=== PATIENT | male | born 1980 | race Caucasian/White ===

== ENCOUNTER 2022-03-16 13:38 | Emergency (ER) | payer SELFPAY ==
--- OUTSIDE RECORDS SUMMARY | 2022-03-16 13:41 | XMS REPORT | Continuity of Care Document ---
:1980 Author Organization [facility] Address [address] [place] [address] Care Team Providers Name Role Phone Burton Maurice MD Attending Clinician BURTON MAURICE Attending Clinician Unavailable Payers Payer Name Policy Type Policy Number Effective Date Expiration Date S ource Problems This patient has no known problems. Allergies, Adverse Reactions, Alerts Allergy Allergy Status Severity Reaction(s) Onset Inactive Treating Comm ents Source Name Type Date Date Clinician Sulfa Propensi Active Rash Univers (Sulfona ty to 2-09 ity of mide adverse 00:00: [place] Antibiot reaction 00 Medica l ics) s Branch SULFA Drug Active Rash Univers (SULFONA Class 2-09 ity of MIDE 00:00: [place] ANTIBIOT 00 Medical ICS) Branch NO KNOWN Drug Active Univers ALLERGIE Class ity of S [facility] Social History Social Habit Start Date Stop Date Quantity Comments Source [facility] to SARS-CoV-2 Not sure [facility] [place] (event) Medical Branch Smoking Status Start Date Stop Date Source Unknown if ever smoked Universit y [facility] Medications Ordered Filled Start Stop Current Ordering Indication Dosage Frequency Signature Comments Components Source Medication Medication Date Date Medication? Clinician (SIG) Name Name ALPRAZolam Yes [id number] .5mg Take 1 Univers (XANAX) 0.5 2-09 tablet by ity of mg tablet 00:00: mouth 3 (three) Medical times Branch daily. ALPRAZolam Yes [id number] .5mg Take 1 Univers (XANAX) 0.5 2-09 tablet by ity of mg tablet 00:00: mouth 3 00 (three) Medical times Branch daily. Vital Signs Vital Name Observation Time Observation Value Comments Source Systolic blood 2020-09-17 12:35:00 146 mm[Hg] Univer sity of pressure [place] [facility] Diastolic blood 2020-09-17 12:35:00 91 mm[Hg] Unive rsity of pressure [facility] Heart rate 2020-09-17 12:35:00 90 /min Universi ty [facility] [place] [facility] [place] Respiratory rate 2020-09-17 12:35:00 18 /min Univ ersity of [facility] Oxygen saturation in 2020-09-17 12:35:00 97 /min University of Arterial blood by [facility] Pulse oximetry Branch Body temperature 2020-09-17 04:04:00 36.67 Jania Univ ersity of [facility] Body weight 2020-09-17 04:04:00 88.451 kg Universi ty of [facility] Systolic blood 2020-09-17 02:21:00 160 mm[Hg] Univer sity of pressure [place] [facility] [place] Diastolic blood 2020-09-17 02:21:00 87 mm[Hg] Unive rsity of [facility] Heart rate 2020-09-17 02:21:00 98 /min Universi ty [facility] Body temperature 2020-09-17 02:21:00 36.67 Jania Univ ersity of [facility] Respiratory rate 2020-09-17 02:21:00 18 /min Univ ers[facility] [place] [facility] [place] Body weight 2020-09-17 02:21:00 88.451 kg Universi ty [facility] Oxygen saturation in 2020-09-17 02:21:00 99 /min University of Arterial blood by [facility] Pulse oximetry [place] Procedures Procedure Date / Time Performing Clinician Source Performed ADC / LCC - DRUG SCREEN 2020-09-17 04:28:00 Burton Maurice [facility] TRIAGE [facility] CREATINE KINASE 2020-09-17 04:27:00 Burton Maurice [place] [facility] THYROID STIMULATING 2020-09-17 04:27:00 Burton Maurice [facility] HORMONE [facility] HEPATIC FUNCTION PANEL 2020-09-17 04:27:00 Burton Maurice [facility] ([id number]) (ALB,T.PRO,BILI Medical Branch T,BU/BC,ALT,AST,ALK PHOS) BASIC METABOLIC PANEL 2020-09-17 04:27:00 Burton Maurice [facility] (NA, K, CL, CO2, Medical Branch GLUCOSE, BUN, CREATININE, CA) SALICYLATE 2020-09-17 04:27:00 Burton Maurice [facility] CBC WITH DIFF 2020-09-17 04:27:00 Burton Maurice [facility] COVID-19 (ID NOW RAPID 2020-09-17 04:27:[address] [facility] TESTING) Medical Branch NOTICE OF PRIVACY 2020-09-17 02:09:44 Doctor Unassigned, No Univ [facility] PRACTICES Name [facility] Branch CONSENT/REFUSAL FOR 2020-09-17 02:09:29 Doctor Unassigned, No [facility] DIAGNOSIS AND TREATMENT Name [facility] Encounters Start End Encounter Admission Attending Care Care Encounter Source Date/Time Date/Time Type Type Clinicians Facility Department ID 2020-09-16 2020-09-17 Emergency [facility] [id number] Univers 22:03:00 07:43:00 Burton Garcia [id number] [facility] [id number] [facility] [id number] [address] 2020-09-16 2020-09-16 [facility] [id number] Univers 22:03:00 22:03:00 BURTON [facility] 2020-09-16 2020-09-16 Emergency [facility] [id number] Univers 20:23:00 21:21:00 Burton Garcia [id number] [facility] [id number] [facility] [id number] [address] 2020-09-16 2020-09-16 Emergency X [facility] ERT [id number] Univers 20:07:00 20:07:00 [facility] Results Test Description Test Time Test Comments Results Result Comments Source THYROID STIMULATING HORMONE 2020-09-17 06:27:00 Test Item Value Reference Range Interpretation Comme nts TSH (test code = 1900855080) See_Comment [Automated message] The system which generated this result transmitted ref erence range: 0.45 - 4.70 mIU/L. T he reference range was not used to interpret this result as cherise l/abnormal. Lab Interpretation (test code = Normal 18198-3) [facility] Test Item Value Reference Range Interpretation Comments SALICYLATE (test code <10 mg/L = 7647639493) SUNIL (test code = SUNIL) Therapeutic Range: ? Analgesic and Antipyretic Use ? 20-100 mg/L ? ? Anti-Inflammatory Use ? 100-250 mg/L Toxic Range: ? Greater than 300 mg/L [facility]10 06:04:00 Test Item Value Reference Range Interpretation Comments ACETAMINOP (test code = <10.0 10-30 L 3508563047) SUNIL (test code = SUNIL) Toxic: Greater than 200 ug/mL @ 4 hour post ingestion or greater than 50 ug/mL @ 12 hour post ingestion Lab Interpretation (test Abnormal code = 36412-6) [facility] (NA, K, CL, CO2, GLUCOSE, BUN, CREATININE, CA)2020-09-17 05:58:00 Test Item Value Reference Range Interpretation Comments NA (test code = 140 mmol/L 135-145 7068151354) K (test code = 3.7 mmol/L 3.5-5 0164012885) CL (test code = 105 mmol/L 98-108 8711618942) CO2 TOTAL (test code = 25 mmol/L 23-31 0303815590) AGAP (test code = 2-16 0538052609) BUN (test code = 18 mg/dL 7-23 9815933659) GLUCOSE (test code = 97 mg/dL 70-110 9826675158) CREATININE (test code 0.99 mg/dL 0.6-1.25 = 1976716515) CALCIUM (test code = 8.8 mg/dL 8.6-10.6 1557743310) eGFR Calculation mL/min/1.73m2 (Non-) (test code = 6457932726) eGFR Calculation mL/min/1.73m2 () (test code = 3177499936) SUNIL (test code = SUNIL) Association of Glomerular Filtration Rate (GFR) and Staging of Kidney Disease* + -+ + ---+| GFR (mL/min/1.73 m2) ?| With Kidney Damage ?| ?Without Kidney Damage+ -------+ ------+ ---------+| ?>90 ?| ?Stage one ?| ? Normal ?+ --+ -+ ----+| ?60-89 ?| ?Stage two ?| ? Decreased GFR ? + -+ + ---+| ?30-59 ?| ?Stage three ?| ? Stage three ? + -+ + ---+| ?15-29 ?| ?Stage four ? | ? Stage four ?+ --+ -+ ----+| ?<15 (or dialysis) ? ?| ?Stage five ? | ? Stage five ?+ --+ -+ ----+ *Each stage assumes the associated GFR level has been in effect for at least three months. ?Stages 1 to 5, with or without kidney disease, indicate chronic kidney disease. Notes: Determination of stages one and two (with eGFR >59mL/min/1.73 m2) requires estimation of kidney damage for at least three months as defined by structural or functional abnormalities of the kidney, manifested by either:Pathological abnormalities or Markers of kidney damage (including abnormalities in the composition of the blood or urine or abnormalities in imaging tests). [facility] (ALB, T.PRO, BILI T, BU/BC, ALT, AST, ALK PHOS)2020-09-17 05:58:00 Test Item Value Reference Range Interpretation Comments TOTAL BILI (test code = 2620087779) 0.4 mg/dL 0.1-1.1 BILI UNCON (test code = 3525625755) 0.4 mg/dL 0.1-1.1 BILI CONJ (test code = 9010394005) 0.0 mg/dL 0-0.3 T PROTEIN (test code = 5849518100) 6.6 g/dL 6.3-8.2 ALBUMIN (test code = 7840921427) 3.9 g/dL 3.5-5 ALK PHOS (test code = 5540333158) 76 U/L 34-122 ALTv (test code = 1742-6) 22 U/L 5-50 AST(SGOT) (test code = 5458280868) 21 U/L 13-40 Lab Interpretation (test code = Normal 76264-7) [facility] [id number] 05:58:00 Test Item Value Reference Range Interpretation Comments CK (test code = 8942897133) 420 U/L 33-194 H Lab Interpretation (test code = Abnormal 45796-1) [facility] (ID NOW RAPID TESTING)2020-09-17 04:56:00 Test Item Value Reference Range Interpretation Comments SARS-CoV-2 Rapid ID NOW Not Detected Not Detected (test code = 47676-4) SUNIL (test code = SUNIL) ID NOW COVID-19 Assay is an isothermal nucleic acid amplification test intended for the qualitative detection of nucleic acid from SARS-CoV-2 viral RNA in nasopharyngeal (MEDICAL LAB ASSISTANT) specimens. It is used under Emergency Use Authorization (EUA) by FDA. The limit of detection (LOD) of the assay is 125 Genome Equivalents/mL. A positive result is indicative of the presence of SARS-CoV-2 RNA. ?Clinical correlation with patient history and other diagnostic information is necessary to determine patient infection status. A negative (Not Detected) result does not preclude SARS-CoV-2 infection. In patients with clinical symptoms and other tests that are consistent with SARS-CoV-2 infection, negative results should be treated as presumptive negative and a new specimen should be tested with alternative PCR molecular test. Invalid: Please collect a new specimen for repeat patient testing if clinically indicated. Lab Interpretation Normal (test code = 34396-3) [facility] / [facility] - DRUG SCREEN [id number] 04:52:00 Test Item Value Reference Range Interpretation Comments BENZO U (test code = Negative Negative 3876822131) SKIP U (test code = Negative Negative 7139947737) AMPHET (test code = Presumptive Positive Negative A 5787776919) THC (test code = Negative Negative 4979252966) METHADONE (test code = Negative Negative 0302744437) Meth U (test code = Presumptive Positive Negative A 7317862510) OPIATES (test code = Negative Negative 1655294622) Cocaine Metabolite (test Negative Negative code = 9970887491) PROPOXY (test code = Negative Negative 1786571474) Tric U (test code = Negative Negative 2406343046) PCP (test code = Negative Negative 5105863203) OXYCOD (test code = Negative Negative 5544967399) SUNIL (test code = SUNIL) Urine Drug Cutoff Ranges Benzodiazepines: ? ? 150 ng/mLBarbiturates: ?200 ng/mLAmphetamine: ? 500 ng/mLCannabinoids: ?50 ?ng/mLMethadone: ? 200 ng/mLMethamphetamine: ? ? 500 ng/mL Opiates: ? 100 ng/mL or 2000 ng/mLCocaine: ? 150 ng/mLPropoxyphene: ?300 ng/mLTricyclics: ?300 ng/mLOxycodone: ? 100 ng/mLPCP: ? 25 ?ng/mL The results are to be used only for medical (i.e., treatment) purposes. Unconfirmed screening results must not be used for non-medical purposes (e.g., employment testing, legal testing). Lab Interpretation (test Abnormal code = 06056-4) [facility] with [id number] 04:38:00 Test Item Value Reference Range Interpretation Comments WBC (test code = See_Comment H [Automated 1890-2) message] The sy stem which generated this result transmitted reference range : 4.20 - 10.70 10*3/?L. The reference range was not used to interpret this result as normal/abnormal . RBC (test code = See_Comment L [Automated 019-8) message] The sy stem which generated this result transmitted reference range : 4.26 - 5.52 10*6/?L. The reference range was not used to interpret this result as normal/abnormal . HGB (test code = 12.4 g/dL 12.2-16.4 718-7) HCT (test code = 36.3 % 38.4-49.3 L 4544-3) MCV (test code = 89.2 fL 81.7-95.6 787-2) MCH (test code = 30.5 pg 26.1-32.7 785-6) MCHC (test code = 34.2 g/dL 31.2-35 786-4) RDW-SD (test code = 38.1 fL 38.5-51.6 L 94310-7) RDW-CV (test code = 11.9 % 12.1-15.4 L 788-0) PLT (test code = See_Comment [Automated 777-3) message] The sy stem which generated this result transmitted reference range : 150 - 328 10*3/ ?L. The reference r eugene was not used to interpret this result as normal/abnormal . MPV (test code = 9.3 fL 9.8-13 L 47836-5) NRBC/100 WBC (test See_Comment [Automat ed code = 1994692015) message] The system which generated this result transmitted reference range : 0.0 - 10.0 /100 WBCs. The refer ence range was not u sed to interpret th is result as normal/abnormal . NRBC x10^3 (test code <0.01 See_Comment [Auto mated = 4761763982) message] The s ystem which generated this result transmitted reference range : 10*3/?L. The reference range was not used to interpret this result as normal/abnormal . GRAN MAT (NEUT) % 72.3 % (test code = 770-8) IMM GRAN % (test code 0.60 % = 6608024602) LYMPH % (test code = 14.8 % 736-9) MONO % (test code = 6.8 % 5905-5) EOS % (test code = 4.8 % 713-8) BASO % (test code = 0.7 % 706-2) GRAN MAT x10^3(ANC) 9.10 10*3/uL 1.99-6.95 H (test code = 6937019893) IMM GRAN x10^3 (test 0.07 10*3/uL 0-0.06 H code = 7798000665) LYMPH x10^3 (test code 1.86 10*3/uL 1.09-3.23 = 731-0) MONO x10^3 (test code 0.86 10*3/uL 0.36-1.02 = 742-7) EOS x10^3 (test code = 0.60 10*3/uL 0.06-0.53 H 711-2) BASO x10^3 (test code 0.09 10*3/uL 0.01-0.09 = 704-7) Lab Interpretation Abnormal (test code = 77675-3) [facility]"
[2022-03-16] MEDS ORDERED: DIAZEPAM 10 MG/2 ML INJ SYRINGE ONE (14:10)
[2022-03-16] MEDS ORDERED: LIDOCAINE 4% PATCH ONE (14:11)
--- NOTE | 2022-03-16 14:14 | RAD REPORT ---
EXAM DESCRIPTION: CT - Stone Protocol - 03/16/2022 2:00 pm CLINICAL HISTORY: Flank pain. right low back pain COMPARISON: No comparisons TECHNIQUE: Axial images were obtained without oral or IV contrast. Lack of contrast limits solid org an and vascular assessment. The uyqri-ho-ehhy spans the entirety of the system partially obscuring uppermost abdomen and lung bases. Coronal reformatted images were obtained and reviewed. All CT scans are performed using dose optimization technique as appropriate and may include automated exposure control or mA/KV adjustment according to patient size. FINDINGS: The lower lung greene are clear. Imaged portions of the liver and spleen show no suspicious findings on non-contrast imaging. The panc reas and adrenal glands are normal. No pathologic lymphadenopathy in the abdomen or pelvis. No urinary tract stones or obstructive uropathy. No bowel obstruction, free air, free fluid or abscess. Normal appendix noted. No significant bony abnormality. IMPRESSION: No urinary tract stones or obstructive uropathy.
[2022-03-16 14:21] LABS: Absolute Lymphocytes (CBC) 1.3 K/uL (0.7-4.9); Hematocrit 44.4 % (39.6-49.0); Lymphocytes % 10.6 % (15.3-44.8); MCV 88.1 fL (80-100); RBC Red Blood Cell Count 5.04 M/uL (4.33-5.43)
[2022-03-16 14:40] LABS: Albumin 4.5 g/dL (3.4-5.0); Bilirubin Total 0.4 mg/dL (0.2-1.0); Potassium 4.1 mmol/L (3.5-5.1); Protein, Total 8.5 g/dL (6.4-8.2)
[2022-03-16 15:13] LABS: Urine Blood Negative (Negative); Urine Glucose Negative (Negative); Urine Protein 1+ (Negative); Urine Specific Gravity >=1.030 (1.005-1.030); Urine pH 5.5 (5.0-7.0)
[2022-03-16 15:40] LABS: Urine Bacteria <20 /HPF (<20); Urine Mucus 3+ /HPF (None Seen); Urine RBC <5 /HPF (None Seen)
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
[2022-03-16 18:09] VITALS: TEMP 97; O2SAT 100
[2022-03-16 18:17] VITALS: BP 136/96
== END 2022-03-16 17:04 | disposition home or self-care (01) ==
LOC: ER 13:38
DX: M54.50 Low back pain, unspecified (principal); F31.9 Bipolar disorder, unspecified; Z88.0 Allergy status to penicillin
CPT/HCPCS: 36415; 74176; 76377; 80053; 81003; 81015; 83690; 85025; 96374; 99284; J2001; J3360

== ENCOUNTER 2024-07-30 15:47 | Emergency (ER) | payer OTHER ==
--- OUTSIDE RECORDS SUMMARY | 2024-07-30 15:49 | XMS REPORT | Continuity of Care Document ---
Author Name Unknown Address [address] [facility] [facility] [address] [place] [address] [facility] Address [address] [facility] [address] [place] [address] Care Team Providers Care Strip Roller Name Role Phone Mary Pond Primary Care Physician Allergies, Adverse Reactions, Alerts Allergy Name Allergy Type Status Severity Reaction(s) Onset Date Inactive Date Treating Clinician Comments Source Penicill ins - CLASS Propensi ty to adverse reaction to drug Active 9-05 00:00: 00 Yon Medrano Sulfa (Sulfona mide Antibiot ics) Propensi ty to adverse reaction to drug Active 6-19 00:00: 00 Yon Medrano Medications Ordered Medication Name Filled Medication Name Start Date Stop Date Current Medication? Ordering Clinician Indication Dosage Frequency Signature (SIG) Comments Components Source TADALAFIL 20MG TABLETS 3-11 00:00: 00 Yes Yon Medrano CLONAZEPAM 1 MG 2-14 00:00: 00 Yes Yon Medrano QUETIAPINE FUMARATE 200 MG 2022-08 1-29 00:00: 00 Yes 200 Yon Medrano QUETIAPINE FUMARATE 200 MG 2022-08 0-25 00:00: 00 Yes 200 Yon Medrano LAMOTRIGINE 100MG TABLETS 2022-08 0-25 00:00: 00 Yes Yon Medrano VENLAFAXINE ER 150MG CAPSULES 2022-08 0-25 00:00: 00 Yes Yon Medrano CLONAZEPAM 1 MG 2022-08 0-25 00:00: 00 Yes 1 Yon Medrano TAKE 10 ML EVERY 6 HRS NEEDED. 9-12 00:00: 00 12-07 00:00 :00 No [id number] Yon Medrano VENLAFAXINE HCL ER 75 MG 0 8-28 00:00: 00 Yes 75 Yon Medrano TADALAFIL 20MG TABLETS 0 8-02 00:00: 00 Yes Yon Medrano LAMOTRIGINE 25MG TABLETS 0 7-31 00:00: 00 Yes Yon Medrano MIRTAZAPINE 7.5 MG 0 7-31 00:00: 00 Yes 75 Yon Medrano CLONAZEPAM 1 MG 0 7-31 00:00: 00 Yes 1 Yon Medrano VENLAFAXINE HCL ER 75 MG 0 7-27 00:00: 00 Yes 75 Yon Medrano TADALAFIL 20MG TABLETS 0 7-04 00:00: 00 Yes Yon Medrano TAMSULOSIN HCL 0.4 MG CAPSULE - 00:00: 00 Yes Yon Medrano TAKE 1 CAPSULE BY MOUTH ONCE DAILY 0 - 00:00: 00 12-07 00:00 :00 No 4 Yon Medrano TAKE 1 TABLET TWICE DAILY. - 00:00: 00 12-07 00:00 :00 No [id number] Yon Medrano TAKE 1 TABLET BY MOUTH AT BEDTIME - 00:00: 00 Yes Yon Medrano VENLAFAXINE ER 75MG CAPSULES 0 5-02 00:00: 00 Yes Yon Medrano LAMOTRIGINE 100MG TABLETS 0 5- 00:00: 00 Yes Yon Medrano VENLAFAXINE ER 150MG CAPSULES 0 5-02 00:00: 00 Yes Yon Medrano CLONAZEPAM 1 MG 0 5-02 00:00: 00 Yes Yon Medrano MIRTAZAPINE 7.5MG TABLETS 5-02 00:00: 00 12-07 00:00 :00 No Yon Medrano TADALAFIL 20MG TABLETS 4-14 00:00: 00 Yes Yon Medrano TAKE 1/2 TO 1 (ONE-HALF TO ONE) TABLET BY MOUTH ONCE DAILY NEEDED 3-07 00:00: 00 12-07 00:00 :00 No Yon Medrano QUETIAPINE FUMARATE 200 MG 3-03 00:00: 00 Yes Yon Medrano TAKE 1 CAPSULE BY MOUTH EVERY DAY WITH FOOD 2-02 00:00: 00 Yes Yon Medrano QUETIAPINE FUMARATE 200 MG 2-02 00:00: 00 Yes 200 Yon Medrano TAKE 1 TABLET BY MOUTH THREE TIMES A DAY 0 2-02 00:00: 00 Yes Yon Medrano TAKE 1 TABLET BY MOUTH TWICE A DAY 2021-08- 00:00: 00 Yes Yon Medrano mirtazapine 45 mg tablet 2021-08 00:00: 00 Yes 45 Yon Medrano TAKE 1 TABLET BY MOUTH TWICE A DAY NEEDED 2021-08 00:00: 00 Yes Yon Medrano TAKE 1/2 TO 1 (ONE-HALF TO ONE) TABLET BY MOUTH ONCE DAILY NEEDED 2021-08 00:00: 00 Yes Yon Medrano venlafaxine ER 150 mg capsule,ext ended release 24 hr 2021-08 0- 00:00: 00 Yes 150 Yon Medrano lamotrigine 25 mg tablet 2021-08 0- 00:00: 00 Yes 25 Yon Medrano TAKE 1 TABLET (3 MG) BY MOUTH DAILY BEFORE BEDTIME 2021-08 0- 00:00: 00 Yes Yon Medrano venlafaxine ER 75 mg capsule,ext ended release 24 hr 2021-08 0-26 00:00: 00 Yes 75 Yon Medrano TAKE 1 TABLET BY MOUTH THREE TIMES A DAY 2021-08 0-26 00:00: 00 Yes Yon Medrano quetiapine 100 mg tablet 2021-08 0-13 00:00: 00 Yes 100 Yon Medrano TAKE 1 CAPSULE BY MOUTH EVERY DAY WITH FOOD -28 00:00: 00 Yes Yon Medrano VENLAFAXINE HCL ER 37.5 MG 9-23 00:00: 00 Yes 375 Yon Medrano VENLAFAXINE 37.5MGER 7-15 00:00: 00 Yes [id number] Yon Medrano TAKE 1 CAPSULE BY MOUTH EVERY DAY WITH FOOD 7- 00:00: 00 Yes Yon Medrano VENLAFAXINE 150MG ER 6-30 00:00: 00 Yes [id number] Yon Medrano TAKE 1 CAPSULE BY MOUTH EVERY DAY WITH FOOD 2022-0 6- 00:00: 00 Yes Yon Medrano TAKE 1 TABLET BY MOUTH THREE TIMES A DAY 2022-0 5-31 00:00: 00 Yes Yon Medrano Dose Unknown 2022-0 4-27 00:00: 00 Yes Yon Medrano Dose Unknown 2022-0 4-27 00:00: 00 Yes Yon Medrano TAKE 1 CAPSULE BY MOUTH EVERY DAY WITH FOOD 2022-0 4-25 00:00: 00 Yes Yon Medrano TAKE 1 TABLET BY MOUTH EVERY DAY 2022-0 4-25 00:00: 00 Yes Yon Medrano ARIPIPRAZOL E 5MG 2-0 4-25 00:00: 00 Yes 5000 Yon Medrano TAKE 1 CAPSULE BY MOUTH EVERY DAY WITH FOOD 2-0 4-25 00:00: 00 Yes Yon Medrano Dose Unknown 2022-0 4-21 00:00: 00 Yes Yon Medrano Dose Unknown 2022-0 4-21 00:00: 00 Yes Yon Medrano Dose Unknown 2022-0 4-18 00:00: 00 Yes Yon Medrano Dose Unknown 2022-0 4-18 00:00: 00 Yes Yon Medrano quetiapine 300 mg tablet 2-0 4-14 00:00: 00 Yes 1mg Yon Medrano mirtazapine 45 mg tablet 2-0 4-14 00:00: 00 Yes 1mg Yon Medrano Dose Unknown 2022-0 4-14 00:00: 00 Yes Yon Medrano Dose Unknown 2022-0 4-14 00:00: 00 Yes Yon Medrano Dose Unknown 2021-0 9-04 00:00: 00 Yes Yon Medrano Dose Unknown 2021-0 9-04 00:00: 00 Yes Yon F Mitchell Dose Unknown 2021-0 9-04 00:00: 00 Yes Yon F Mitchell Dose Unknown 2021-0 9-04 00:00: 00 Yes Yon Medrano Dose Unknown 2021-0 9-04 00:00: 00 Yes Yon Medrano lamotrigine 150 mg tablet 2021-0 6-19 00:00: 00 Yes 1mg Yon Medrano Dose Unknown 2021-0 6-19 00:00: 00 Yes Yon Medrnao Dose Unknown 01-24 00:00: 00 Yes Yon Medrano Dose Unknown 01-24 00:00: 00 Yes Yon Medrano lamotrigine 100 mg tablet 01-24 00:00: 00 Yes 1mg Yon Medrano hydroxyzine HCl 50 mg tablet 01-24 00:00: 00 Yes 1mg Yon Medrano Vraylar 1.5 mg capsule 01-24 00:00: 00 Yes 1mg Yon Medrano doxepin 50 mg capsule 01-24 00:00: 00 Yes 1mg Yon Medrano Immunizations Ordered Immunization Name Filled Immunization Name Date Status Comments Source Moderna COVID-19 Vaccine Moderna COVID-19 Vaccine 2021-08-25 00:00:00 Completed Yon Medrano Moderna COVID-19 Vaccine Moderna COVID-19 Vaccine 2021-04-25 00:00:00 Completed Yon Medrano Moderna COVID-19 Vaccine Moderna COVID-19 Vaccine 2021-03-03 00:00:00 Completed Yon Medrano Vital Signs Vital Name Observation Time Observation Value Comments S ourjorge Weight Measured 2024-01-09 16:25:00 209.00 pounds Yon Medrano Height Measured 2024-01-09 16:25:00 71.85 inches Yon Medrano Body Temperature 2024-01-09 16:25:00 98.20 degrees Yon Medrano Heart Rate 2024-01-09 16:25:00 79.00 /min Samia en Theresa Medrano Respiratory Rate 2024-01-09 16:25:00 16.00 /min Yon Medrano BP Systolic 2024-01-09 16:25:00 148 mm[Hg] Step miriam Medrano BP Diastolic 2024-01-09 16:25:00 91 mm[Hg] Reguol phen Theresa Medrano BP Systolic 2023-04-20 10:02:00 Jeremy Medrano BP Diastolic 2023-04-20 10:02:00 Regulo phen Theresa Medrano Weight Measured 2023-04-20 10:02:00 Yon Medrano Height Measured 2023-04-20 10:02:00 Yon Medrano Body Temperature 2023-04-20 10:02:00 Yon F Mitchell Heart Rate 2023-04-20 10:02:00 Samia en F Mitchell Respiratory Rate 2023-04-20 10:02:00 Yon F Mitchell BP Systolic 2022-12-24 11:03:00 135 mm[Hg] Step hen F Mitchell BP Diastolic 2022-12-24 11:03:00 89 mm[Hg] Regulo phen F Mitchell Weight Measured 2022-12-24 11:03:00 240.60 pounds Yon F Mitchell Height Measured 2022-12-24 11:03:00 71.85 inches Yon F Mitchell Body Temperature 2022-12-24 11:03:00 98.70 degrees Yon F Mitchell Heart Rate 2022-12-24 11:03:00 96.00 /min Samia en F Mitchell Respiratory Rate 2022-12-24 11:03:00 Yon F Mitchell BP Systolic 2021-04-24 13:12:00 Step hen F Mitchell BP Diastolic 2021-04-24 13:12:00 Regulo phen F Mitchell Weight Measured 2021-04-24 13:12:00 239.20 pounds Yon F Mitchell Height Measured 2021-04-24 13:12:00 71.85 inches Yon F Mitchell Body Temperature 2021-04-24 13:12:00 Yon F Mitchell Heart Rate 2021-04-24 13:12:00 Samia en F Mitchell Respiratory Rate 2021-04-24 13:12:00 Yon F Mitchell BP Systolic 2021-04-11 14:29:00 144 mm[Hg] Step hen F Mitchell BP Diastolic 2021-04-11 14:29:00 82 mm[Hg] Regulo phen F Mitchell Weight Measured 2021-04-11 14:29:00 239.20 pounds Yon F Mitchell Height Measured 2021-04-11 14:29:00 71.85 inches Yon F Mitchell Body Temperature 2021-04-11 14:29:00 98.40 degrees Yon F Mitchell Heart Rate 2021-04-11 14:29:00 91.00 /min Samia en F Mitchell Respiratory Rate 2021-04-11 14:29:00 25.00 /min Yon F Mitchell BP Systolic 2021-01-24 11:26:00 131 mm[Hg] Step hen F Mitchell BP Diastolic 2021-01-24 11:26:00 96 mm[Hg] Regulo Medrano Weight Measured 2021-01-24 11:26:00 227.20 pounds Yon Medrano Height Measured 2021-01-24 11:26:00 71.85 inches Yon Medrano Body Temperature 2021-01-24 11:26:00 98.40 degrees Yon Medrano Heart Rate 2021-01-24 11:26:00 97.00 /min Samia Medrano Respiratory Rate 2021-01-24 11:26:00 Yon Medrano Encounters Start Date/Time End Date/Time Encounter Type Admission Type Attending [facility] Care Department Encounter ID Source 2024-01-09 16:15:07 2024-01-09 16:15:07 Outpatient [facility] [id number] Yon Medrano 2024-01-09 00:00:00 2024-01-09 00:00:00 Outpatient Visit [facility] [id number] Yon Medrano 2023-04-19 16:49:05 2023-04-19 16:49:05 Outpatient [facility] [id number] Yon Medrano 2022-12-24 11:03:03 2022-12-24 11:03:03 Outpatient [facility] [id number] Yon Medrano Results Test Description Test Time Test Comments Results Result Co mments Source Yon MedranoPSA, [id number] 00:00:00* Test Item Value Reference Range Interpretation Comme nts PSA, TOTAL (test code = 2606) 1.87 NG/ML Yon Medrano
--- NOTE | 2024-07-30 16:41 | EDPHYS ---
Physician Documentation [facility] Name: Louis Trevino Age: 43 yrs Sex: Male : 1980 Arrival Date: 07/30/2024 Time: 15:47 Bed DX5 Private MD: ED Physician Saleem Goodson HPI: 07/30 16:35 This 43 yrs old Male presents to ER via Ambulatory with complaints of Medication Refill bo1 - Psych medication. 16:35 Ran out of meds, needs a refill of meds. Holidays are here - Pablo. bo1 Historical: - Allergies: 16:15 PENICILLINS; kb3 - Home Meds: 16:15 Clonazepam Oral 1 tab 3 times per day [Active]; Lamictal 100 mg Oral tablet 1 tabs kb3 daily [Active]; Seroquel 400 mg Oral tablet 1 tab daily [Active]; Ambien 10 mg Oral tablet 1 tab every day at bedtime [Active]; venlafaxine 225 mg oral Tablet, Extended Release 24 hr 1 tab every day at bedtime [Active]; - PMHx: 16:15 Bipolar disorder; MANIC DEPRESSION; kb3 - PSHx: 16:15 Tonsillectomy; kb3 - Immunization history:: Adult Immunizations up to date, Client reports receiving the 2nd dose of the Covid vaccine, Last tetanus immunization: unknown. - Infectious Disease History:: Denies. - Social history:: Smoking status: Reported history of juuling and/or vaping. Patient uses street drugs, marijuana. ROS: 16:36 Constitutional: Negative for fever, chills, and weight loss bo1 16:36 Cardiovascular: Negative for chest pain, 16:36 Respiratory: Negative for shortness of breath, 16:36 Skin: Negative for rash, 16:36 Psych: Negative for homicidal ideation, suicide gesture, suicidal ideation, 16:36 All other systems are negative, Exam: 16:36 Constitutional: This is a well developed, well nourished patient who is awake, alert, bo1 and in no acute distress. 16:36 Head/face: Exam is negative for acute changes, 16:36 Eyes: Exam is negative for acute changes, 16:36 Cardiovascular: Rate: normal, Rhythm: regular, 16:36 Respiratory: Exam negative for acute changes, 16:36 Skin: no rash present. 16:36 Neuro: Exam negative for acute changes, Orientation: is normal, appropriate for stated age, no acute changes, 16:36 Psych: Behavior/mood is pleasant, cooperative, Affect is animated, Oriented to person, place, time, Vital Signs: 16:13 Weight 98.43 kg; Height 6 ft. 0 in. ; Pain 0/10; kb3 16:21 BP 179 / 107; Pulse 66; Resp 19; Temp 97.1; Pulse Ox 99% ; Weight 98.43 kg; Height 6 ty ft. 0 in. ; Pain 0/10; 16:21 Body Mass Index 29.43 (98.43 kg, 182.88 cm) ty 16:13 Pain Scale: Adult kb3 16:21 Pain Scale: Adult ty MDM: 16:24 Medical Screening Exam initiated bo1 16:38 Data reviewed: vital signs. ED course: Pt is to be refilled his meds . bo1 Administered Medications: No medications were administered Disposition Summary: 07/30/24 16:40 Discharge Ordered Notes: Location: Home bo1 Problem: chronic bo1 Symptoms: are unchanged bo1 Condition: Stable bo1 Diagnosis - Bipolar disorder, current episode depressed, mild or moderate severity bo1 Followup: bo1 - With: Private Physician - When: Upon discharge from the Emergency Department - Reason: Recheck today's complaints, Continuance of care Discharge Instructions: - Discharge Summary Sheet bo1 - Medicine Refill at the Emergency Department bo1 Forms: - Medication Reconciliation Form bo1 - Antibiotic Education bo1 - Prescription Opioid Use bo1 - Patient Portal Instructions bo1 - Leadership Thank You Letter bo1 Prescriptions: - venlafaxine 225 mg Oral Tablet, Extended Release 24 hr - take 1 tablet ORAL route daily; 30 tablet; Refills: 0, Product Selection bo1 Permitted - Lamictal 100 mg Oral tablet - take 1 tablet ORAL route once daily; 30 tablet; Refills: 0, Product Selection bo1 Permitted Signatures: Maryann Cartagena RN RN kb3 OeiSaleem MD MD bo1
--- NOTE | 2024-07-30 16:41 | ER ---
Nurse's Notes [facility] Name: Louis Trevino Age: 43 yrs Sex: Male : 1980 Arrival Date: 07/30/2024 Time: 15:47 Bed DX5 Private MD: Diagnosis: Bipolar disorder, current episode depressed, mild or moderate severity Presentation: 07/30 16:13 Chief complaint: Patient states: Pt reports he is out of psych meds x1 day and cannot kb3 get refills until next week due to pharmacy problems. Coronavirus screen: Vaccine status: Patient reports receiving the 2nd dose of the covid vaccine. Client denies travel out of the [place] in the last 14 days. Ebola Screen: Patient negative for fever greater than or equal to 101.5 degrees Fahrenheit, and additional compatible Ebola Virus Disease symptoms Patient denies exposure to infectious person. Patient denies travel to an Ebola-affected area in the 21 days before illness onset. Initial Sepsis Screen: Does the patient meet any 2 criteria? No. Patient's initial sepsis screen is negative. Does the patient have a suspected source of infection? No. Patient's initial sepsis screen is negative. Risk Assessment: Do you want to hurt yourself or someone else? Patient reports no desire to harm self or others. Onset of symptoms was July 29, 2024. 16:13 Method Of Arrival: Ambulatory kb3 16:13 Acuity: REHAN 4 kb3 Triage Assessment: 16:15 General: Appears in no apparent distress. Behavior is calm, cooperative. Pain: Denies kb3 pain. Historical: - Allergies: 16:15 PENICILLINS; kb3 - Home Meds: 16:15 Clonazepam Oral 1 tab 3 times per day [Active]; Lamictal 100 mg Oral tablet 1 tabs kb3 daily [Active]; Seroquel 400 mg Oral tablet 1 tab daily [Active]; Ambien 10 mg Oral tablet 1 tab every day at bedtime [Active]; venlafaxine 225 mg oral Tablet, Extended Release 24 hr 1 tab every day at bedtime [Active]; - PMHx: 16:15 Bipolar disorder; MANIC DEPRESSION; kb3 - PSHx: 16:15 Tonsillectomy; kb3 - Immunization history:: Adult Immunizations up to date, Client reports receiving the 2nd dose of the Covid vaccine, Last tetanus immunization: unknown. - Infectious Disease History:: Denies. - Social history:: Smoking status: Reported history of juuling and/or vaping. Patient uses street drugs, marijuana. Screenin:19 [facility] ED Fall Risk Assessment (Adult) History of falling in the last 3 months, kb3 including since admission No falls in past 3 months (0 pts) Confusion or Disorientation No (0 pts) Intoxicated or Sedated No (0 pts) Impaired Gait No (0 pts) Mobility Assist Device Used No (0 pt) Altered Elimination No (0 pt) Score/Fall Risk Level 0 - 2 = Low Risk Oriented to surroundings. Abuse screen: Denies threats or abuse. Denies injuries from another. Nutritional screening: No deficits noted. Tuberculosis screening: No symptoms or risk factors identified. Assessment: 16:19 General: Appears in no apparent distress. Behavior is calm, cooperative. General: No kb3 complaints. Pain: Denies pain. Vital Signs: 16:13 Weight 98.43 kg; Height 6 ft. 0 in. ; Pain 0/10; kb3 16:21 BP 179 / 107; Pulse 66; Resp 19; Temp 97.1; Pulse Ox 99% ; Weight 98.43 kg; Height 6 ty ft. 0 in. ; Pain 0/10; 16:21 Body Mass Index 29.43 (98.43 kg, 182.88 cm) ty 16:13 Pain Scale: Adult kb3 16:21 Pain Scale: Adult ty ED Course: 15:48 Patient arrived in ED. im 16:01 Saleem Goodson MD is Attending Physician. bo1 16:15 Triage completed. kb3 16:15 Arm band placed on right wrist. kb3 16:19 Patient has correct armband on for positive identification. Provided Education on: Plan kb3 of care. 16:19 No provider procedures requiring assistance completed. Patient did not have IV access kb3 during this emergency room visit. Administered Medications: No medications were administered Medication: 16:19 VIS not applicable for this client. kb3 Outcome: 16:40 Discharge ordered by . bo1 16:58 Discharged to home ambulatory, kb3 16:58 Condition: stable 16:58 Discharge instructions given to patient, Instructed on discharge instructions, follow up and referral plans. medication usage, Demonstrated understanding of instructions, follow-up care, medications, Prescriptions given X 2, 16:59 Patient left the ED. kb3 Signatures: Maryann Cartagena RN RN kb3 Shantel Gould Tylor ty Oei, Benjamin, MD MD bo1
[2024-07-30 17:19] VITALS: BP 179/107; TEMP 97.1; O2SAT 99
== END 2024-07-30 16:59 | disposition home or self-care (01) ==
LOC: ER 15:47
DX: F31.32 Bipolar disorder, current episode depressed, moderate (principal)
CPT/HCPCS: 99283